=== PATIENT | male | born 1950 | race Caucasian/White ===

== ENCOUNTER → 2017-01-03 | Day surgery (SDC) | payer BC ==
[~2017-01-03] VITALS: Ht 175.3 cm; Wt 66.8 kg
[~2017-01-03] MED LIST: ALPR1TAB3 PO; ASPI81CH CHEW; ASPI81TA82 PO; ASPIRIN 81 MG CHEW TAB PO SCH; BUPIVACAINE/EPINEPHRINE 0.5% PF 30 ML VIAL ONE; CEFP250T PO; CITA10TA4 PO; CLOPIDOGREL 300 MG TAB PO ONE; CLOPIDOGREL 75 MG TAB PO SCH; DO NOT ADM ANY ANTICOAGULANT DRUGS XX PRN; ENALAPRILAT 1.25 MG/ML VIAL IV PUSH PRN; FAMOTIDINE 20 MG/2 ML VIAL ONE; FENO50TA PO; HEPARIN SODIUM - IV 10,000 UNITS/10 ML VIAL ONE; HEPARIN SODIUM - SQ 10,000 UNITS/ML VIAL ONE; HYDR10TA16 PO; HYDROCORTISONE SOD SUCCINATE 100 MG VIAL IV PUSH SCH; INSULIN HUMAN REGULAR 1,000 UNITS/10 ML VIAL SQ PRN; IOHEXOL 300 MG/ML 50 ML BTL (for RAD DIAG) OTHER ONE; LABETALOL HCL 100 MG/20 ML VIAL IV PUSH PRN; LACTATED RINGER'S 1000 ML IV SCH; LEVO.075 PO; LOTE40TA PO; METF-324 PO; METF500T PO; METOPROLOL TARTRATE 25 MG TAB PO PRN; NITROPRUSSIDE INJ 50 MG in DEXTROSE 5% IN WATER INJ 250 ML IV PRN; PERC10TA27 PO; POTASSIUM CHLORIDE 20 MEQ CONTROLLED RELEASE TAB PO PRN; PROPOFOL 200 MG/20 ML AMP IV ONE; PROTAMINE SULFATE 50 MG/5 ML VIAL ONE; ROSU10 PO; SODIUM CHLORID 0.9% 500 ML INJ 500 ML IV ONE; SODIUM CHLORID 0.9% 500 ML IV SCH; VITA2000 PO; ZANT150T2 PO; ceFAZolin 1,000 MG/NS 100 ML IV SCH; cloNIDine HCL 0.1 MG TAB PO PRN; diphenhydrAMINE HCL 50 MG/ML VIAL IV PUSH SCH; ePHEDrine/NS 25 MG/5 ML SYR IV ONE; oxyCODONE/ACETAMINOPHEN 5 MG/325 MG TAB PO PRN
[2017-01-03 06:50] LABS: AUTOMATED NEUTROPHIL # 6.5 TH/MM3 (1.8-7.7); BASOPHIL % 0.4 % (0.0-2.0); EOSINOPHIL # 0.1 TH/MM3 (0-0.4); EOSINOPHIL % 1.7 % (0.0-4.0); HEMATOCRIT 34.4 % (39.0-51.0); HEMO FLAGS DIFF FINAL; LYMPH % 8.8 % (9.0-44.0); LYMPHOCYTE # 0.7 TH/MM3 (1.0-4.8); MEAN CELL VOLUME 92.2 FL (80.0-100.0); MEAN CORPUSCULAR HEMOGLOBIN 31.4 PG (27.0-34.0); MEAN CORPUSCULAR HGB CONC 34.1 % (32.0-36.0); MONO % 11.6 % (0.0-8.0); NEUT % 77.5 % (16.0-70.0); PLATELET COUNT 232 TH/MM3 (150-450); RED BLOOD COUNT 3.73 MIL/MM3 (4.50-5.90); RED CELL DISTRIBUTION WIDTH 13.4 % (11.6-17.2); WHITE BLOOD COUNT 8.4 TH/MM3 (4.0-11.0)
[2017-01-03 06:57] VITALS: BP 117/70; PULSE 55; RESP 16; TEMP 97.9; O2SAT 96
[2017-01-03 07:06] LABS: APTT (PATIENT) 32.5 SEC (24.3-30.1); PROTHROMBIN TIME - PATIENT 11.5 SEC (9.8-11.6)
[2017-01-03 07:09] LABS: BICARBONATE 25.2 MEQ/L (21.0-32.0); POTASSIUM 4.2 MEQ/L (3.5-5.1)
[2017-01-03 14:50] VITALS: BP 140/78; PULSE 63; RESP 16; TEMP 99.3; O2SAT 98
--- NOTE | 2017-01-03 22:16 | EKG ---
Date Performed: 01/03/2017 Time Performed: 06:51:43 PTAGE: 66 years EKG: SINUS BRADYCARDIA LOW QRS VOLTAGE IN EXTREMITY LEADS Since previous tracing, no significant change noted BORDERLINE ECG PREVIOUS TRACING : 11/28/2013 14.34 DOCTOR: Gina Mcgee Interpretating Date/Time 01/03/2017 22:14:43
--- NOTE | 2017-01-06 08:13 | MP ---
cc: NIOCLE DELGADO M.D., PATRICIA DATE OF SURGERY 01/03/2017 PREOPERATIVE DIAGNOSIS Disabling, lifestyle limiting left lower extremity claudication - status post left external iliac stent 2006. POSTOPERATIVE DIAGNOSIS Disabling, lifestyle limiting left lower extremity claudication - status post left external iliac stent 2006. OPERATIVE PROCEDURE Left external iliac percutaneous balloon angioplasty and stent placement. SURGEON Nicole Delgado MD [facility] ANESTHESIA Local MAC DESCRIPTION OF PROCEDURE With the patient in the supine position and under IV sedation, the abdomen, both groins and thighs were prepped with Betadine and draped in a sterile fashion. One gram of Ancef was administered intravenously. Following a protocol time-out, skin and subcutaneous tissue along the proposed left common femoral access site preemptively infiltrated with 0.5% Marcaine with epinephrine. Utilizing ultrasound guidance, an 18 gauge needle was inserted into the left mid common femoral lumen and a J-wire advanced under fluoroscopic guidance into the left external iliac artery. A 5-[place] hemostatic sheath was deployed over the J-wire. A diluted contrast was injected through the sheath side-arm in conjunction with digital C-arm fluoroscopic imaging. This confirmed a focal, high-grade, approximately 90% stenosis within the external iliac artery immediately proximal to the previously placed external iliac stent. Otherwise, the common and internal iliac arteries were widely patent. Also, the right iliofemoral bypass was notably widely patent. The right SFA was severely stenotic along its proximal third. The profunda, which was dominant, reconstituted the SFA at the mid thigh level and the SFA beyond was non-diseased. Also, the right popliteal and trifurcation vessels were fairly normal. On the left side, the common femoral artery was widely patent. The SFA was diffusely diseased with eccentric, calcified plaque typically prominent along the mid and distal third level. The left popliteal and trifurcation vessels were relatively non-diseased. The patient was systemically heparinized with 5000 units. An Advantage guidewire, Quick-Cross catheter combination was easily negotiated through the left external iliac stenosis. Pullback pressures confirmed a 30 mm gradient across the external iliac lesion. The lesion was balloon angioplastied with a 6 x 20 mm balloon inflated to 8 atmospheres, two separate inflations of two minutes each. This was followed by deployment of a 7 x 40 mm balloon expandable stent with approximately 15 mm overlapped into the existing external iliac stent. Completion angiogram revealed no residual stenosis with much improved, rapid flow within the left iliac system. The heparin was not reversed. The sheath was secured with a stitch of 2-0 silk and sterile dressing applied. There were no operative complications. At the conclusion of the procedure, left pedal pulses were easily palpable with robust Doppler flow. The patient returned to recovery in stable condition having tolerated the procedure well. MD PAT [place]/KB /7:48 AM /8:05 AM
== END | disposition home or self-care (01) ==
LOC: HSDC 05:58
PROVIDERS: ATTEND Surgery Vascular Surgery
DX: I70.212 Atherosclerosis of native arteries of extremities with intermittent claudication, left leg (principal); I10 Essential (primary) hypertension; E11.9 Type 2 diabetes mellitus without complications; Z79.84 Long term (current) use of oral hypoglycemic drugs
CPT/HCPCS: 00880; 37221; 75710; 80048; 85025; 85610; 85730; 93005; C1725; C1769; C1876; J1200; J1644; J1720; J7040; J7120; Q9967; J2720